=== PATIENT | male | born 1965 | race Caucasian/White ===

== ENCOUNTER 2017-02-10 06:53 | Day surgery (SDC) | payer BC ==
[~2017-02-10] VITALS: Ht 172.7 cm; Wt 71.9 kg
[~2017-02-10 06:53] MED LIST: FISH1CAP2 PO; MULT-933 PO
[2017-02-10] MEDS ORDERED: LR 1,000 ML IV SCH (07:00)
[2017-02-10] MEDS ORDERED: LIDOCAINE 1% (10mg/ml) 2ml SDV INJ ONE (07:00)
[2017-02-10 07:04] VITALS: BP 107/68; PULSE 64; RESP 16; TEMP 97.7; O2SAT 98
[2017-02-10 07:05] VITALS: Ht 172.7 cm; Wt 71.9 kg
--- NOTE | 2017-02-10 07:13 | ANESPREOP ---
Anesthesia Record Date and Time DATE: 02/10/17 TIME: 07:12 Proposed Surgical Procedure COLONOSCOPY NPO since: mn Allergies: Coded Allergies: No Known Drug Allergies (Verified Allergy, Unknown, 02/07/17) Ht/Wt/BMI Height: 5 ' 8.00 " Weight: 71.900 kg BMI: 24.1 kg/m2 Vital Signs Date Time Temp Pulse Resp B/P Pulse Ox O2 Delivery O2 Flow Rate FiO2 02/10/17 07:04 97.7 64 16 107/68 98 Room Air Medications Inpatient Medications Current Medications Medications (Trade) Dose Ordered Sig/Liz Start Time Stop Time Status Last Admin Dose Admin Lactated Ringer's (Lactated Ringers) 1,000 ml @ 50 mls/hr Q20H 02/10/17 07:00 Multivitamin (Multi-Day Vitamins) 1 Each Tablet, 1 TAB PO DAILY, (Reported) Last Taken: on 02/02/17 [place]-3 Fatty Acids/Fish Oil (Fish Oil 1,000 mg Capsule) 1 Each Capsule, 1,000 MG PO DAILY, (Reported) Last Taken: on 02/02/17 Currently on Beta Roman: No Medical/Surgical History Smoking Status: Never smoker Use Chewing Tobacco?: No Second Hand Exposure: No Substance Use Type: does not use Alcohol Intake: none Past Surgical History Orthopedic Surgeries: Abdominal Surgeries: Genitourinary Surgeries: Cardiac Surgeries: Endocrine Surgeries: Reproductive Surgeries: Neurological Surgeries: Ear Surgeries: Nose Surgeries: Throat Surgeries: Yes - TPONSILLECTOMY PER H&P Other Surgeries: Yes - WISDOM TEETH PER H&P Anesthesia Adverse Reactions: FOUND none Family Hx of Anesthesia Advers: none Hx of Motion Sickness: No Physical Exam Respiratory: Bilat breath sounds equal, Lungs clear Cardiovascular: FOUND Regular rate, rhythm Airway Assessment Mallampati Score: II TMD: 3 Fingerbreadths Neck Extension: Good Overall Assessment: No Airway Concerns, May Be Diff Mask Vent. (facial hair) ASA: 2 Plan Anesthesia Plan: TIVA, LMA, GETA Discussion Discussed risks/options/alternatives of anesthesia and questions answered. Patient consents. Nursing pain assessment noted. Present: Family Member Attestation Statement Prior to the delivery of any anesthetic medication, I examined the patient, developed the plan, obtained the patient's consent and discussed the risk and benefits of the procedure with the patient/guardian. KILEY GURROLA CRNA Feb 10, 2017 07:13
[2017-02-10] MEDS ORDERED: PROPOFOL 500mg 50 ML IV ONE ×2 (08:27→08:52)
[2017-02-10 09:13] VITALS: BP 92/54; PULSE 72; RESP 18; TEMP 96.9; O2SAT 96
--- NOTE | 2017-02-10 09:22 | GSPOSTPROC ---
Immediate Operative Note DATE: 02/10/17 TIME: 09:21 Postop Diagnosis: * posterior anal fissure * mass at the appendiceal orifice (possible intussusception of the appendix) Surgical Procedure: C-scope w/Biopsies Surgeon: Ghada ASA: 2 SEBASTIAN HANNA MD Feb 10, 2017 09:22
[2017-02-10 09:25] VITALS: BP 98/62; PULSE 73; RESP 18; O2SAT 96
[2017-02-10 09:40] VITALS: BP 96/63; PULSE 64; RESP 18; O2SAT 94
[2017-02-10 09:50] VITALS: BP 98/54; PULSE 62; RESP 17; O2SAT 100
[2017-02-10 10:00] VITALS: BP 101/58; PULSE 67; RESP 16; O2SAT 100
--- NOTE | 2017-02-10 10:12 | ANESPO ---
Post-Op Note Date 02/10/17 Time: 10:10 Status Pt Participated in Evaluation: Pt participated in person Vital Signs Date Time Temp Pulse Resp B/P Pulse Ox O2 Delivery O2 Flow Rate FiO2 02/10/17 10:00 67 16 101/58 100 Room Air 02/10/17 09:13 96.9 Respiratory Function: Airway patent, Regular respirations Cardiovascular Function: Regular pulse Mental Status: Alert/oriented Pain Level Intensity: 0 Hydration: Taking po fluids Complications during Recovery None apparent Follow-Up Instructions Instructions Per Surgeon KILEY GURROLA CRNA Feb 10, 2017 10:12
--- NOTE | 2017-02-11 06:56 | OPNOTEF ---
DATE OF OPERATION 02/10/2017 SURGEON Todd Urrutia MD PREOPERATIVE DIAGNOSIS Screening colonoscopy. POSTOPERATIVE DIAGNOSES 1. Posterior anal fissure. 2. Mass of the cecum at the appendiceal orifice - possible intussusception of the appendix. PROCEDURE Colonoscopy with cold biopsies of the mass at the appendiceal orifice. ANESTHESIA TIVA ASA CLASS 2 INDICATIONS The patient is a 51-year-old male who has never had prior screening colonoscopy. He presented based on age alone. He is not aware of any family history of colon cancer or colon polyps. FINDINGS On visual rectal exam a posterior anal fissure was noted with no evidence of bleeding. At the appendiceal orifice there appeared to be prominence consistent with a mass, but the aperture of the appendiceal orifice was unable to be visualized. This raised question of whether or not there was intussusception of a portion of the appendix versus a polyp at the location. No other abnormalities were seen throughout the colon. DESCRIPTION OF PROCEDURE After informed consent was obtained the patient was taken to the endoscopy suite and placed in a left lateral decubitus position. IV anesthesia was administered by the anesthesia team. The patient had received a MiraLAX/Dulcolax bowel prep the day prior. A digital rectal exam was performed and visual rectal exam externally had revealed a posterior anal fissure with no evidence of bleeding. An Olympus video colonoscope with an AmplifEYE device was inserted and retroflexed to examine the distal rectum. The scope was returned to a neutral position. It was advanced to the level of the cecum without difficulty. The cecum was identified by the confluence of the tenia as well as the ileocecal valve which was partially intubated and the lining of the mucosa was identified. At the area of the expected appendiceal orifice, there was prominence consistent with a sessile polyp versus mass versus intussusception of the appendix itself. Because of the uncertainty, it was felt that the safest course was to perform cold biopsies of the area of concern. Following multiple biopsies of the area, the scope was withdrawn examining the mucosa circumferentially. The bowel prep was very good with residual liquid and solid contents of the colon. The minimal fibrous debris was able to be manipulated with the scope to allow full visualization of the mucosa. No other abnormalities were noted throughout the colon. Upon reaching the rectum the carbon dioxide insufflation was evacuated and the scope was removed. RECOMMENDATIONS 1. Await pathology results to determine a course of action regarding the area of the appendiceal orifice. 2. If the patient is having symptoms from his anal fissure such as pain or blood with bowel movements, he could be seen in the clinic medical management of his fissure could be discussed. STARLA
== END 2017-02-10 10:08 | disposition home or self-care (01) ==
LOC: NSC 06:53
PROVIDERS: ATTEND Surgery
DX: Z12.11 Encounter for screening for malignant neoplasm of colon (principal); K52.9 Noninfective gastroenteritis and colitis, unspecified; K63.89 Other specified diseases of intestine; K60.2 Anal fissure, unspecified
CPT/HCPCS: 45380; J2704; J7120